=== PATIENT | female | born 1985 | race Caucasian/White ===

== ENCOUNTER 2017-06-09 18:13 | Inpatient (IN) | payer BC ==
[~2017-06-09] VITALS: Ht 185.4 cm; Wt 158.6 kg
[2017-06-09] MEDS ORDERED: DEPO-PROVER150 MG/M1 IM (18:17)
[2017-06-09 19:01] LABS: HEMATOCRIT 38.6 % (37.0-47.0); HEMOGLOBIN 12.7 g/dl (12.5-16.0); MEAN CELL VOLUME 88 fl (80.0-100.0); MEAN CORPUSCULAR HEMOGLOBIN 29 pg (27.0-31.0); MEAN CORPUSCULAR HGB CONC 33 g/dl (33.0-37.0); MEAN PLATELET VOLUME 9.6 fl (7.4-10.4); PLATELET COUNT 268 K/mm3 (130-400); REDCELL DISTRIBUTION WIDTH-CV 13.2 % (11.5-14.5)
[2017-06-09 19:15] LABS: ALBUMIN 4.4 gm/dL (3.5-5.0); BILIRUBIN,TOTAL 0.3 mg/dL (0.0-1.0); C-REACTIVE PROTEIN 1.4 mg/dL (0.0-0.9); CALCIUM 9.2 mg/dL (8.4-10.2); CREATININE, serum 0.61 mg/dL (0.52-1.25); POTASSIUM 3.7 mmol/L (3.4-5.0); TOTAL PROTEIN 7.6 gm/dL (6.4-8.2)
[2017-06-09 19:17] LABS: COLLECTION METHOD CLEAN CATCH
[2017-06-09 19:19] LABS: BAND 2 % (0-10); LYMPHOCYTE 5 % (20.0-51.0); NEUTROPHILS 90 % (42.0-75.2)
[2017-06-09 19:20] LABS: PLATELET ESTIMATE NORMAL (NORMAL)
[2017-06-09 19:29] LABS: INFLUENZA A NEGATIVE; INFLUENZA B NEGATIVE
[2017-06-09 19:33] LABS: AMORPHOUS CRYSTAL Present /uL; MUCOUS Present /lpf; PH 5 (5-8); URINE APPEARANCE Hazy; URINE BACTERIA Rare /hpf; URINE BILIRUBIN Positive (NEGATIVE); URINE BLOOD Negative (NEGATIVE); URINE COLOR Amber; URINE GLUCOSE Negative (NEGATIVE); URINE KETONE Trace (NEGATIVE); URINE LEUKOCYTE ESTERASE Negative (NEGATIVE); URINE NITRATE Negative (NEGATIVE); URINE PROTEIN(semi-quant) 1+ (NEGATIVE)
[2017-06-09 23:23] VITALS: BP 156/72; PULSE 69; TEMP 98.5
[2017-06-10] VITALS (10 sets, daily range): BP systolic 144–170; BP diastolic 65–88; PULSE 58–75; TEMP 97.8–100
[2017-06-11 01:28] VITALS: BP 146/74; PULSE 62; TEMP 98.7
[2017-06-11 06:30] VITALS: BP 136/68; PULSE 56; TEMP 97.2
[2017-06-11 09:24] VITALS: BP 137/71; PULSE 70; TEMP 98.2
[2017-06-11] MEDS ORDERED: NORCO 325 MG-51 TAB PO (09:45)
[2017-06-11] MEDS ORDERED: ZOFRAN ODT4 MG PO (09:50)
[2017-06-11] MEDS ORDERED: COLACE 100100 MG/CAP PO (09:50)
== END 2017-06-11 11:30 | disposition home or self-care (01) | DRG 418 ==
LOC: COL.ER 18:13 → SURG 20:27
PROVIDERS: Family Medicine; Surgery
PROC: 8E0W4CZ Robotic Assisted Procedure of Trunk Region, Percutaneous Endoscopic Approach (ICD-10-PCS; 2017-06-10)
PROC: 0FT44ZZ Resection of Gallbladder, Percutaneous Endoscopic Approach (ICD-10-PCS; principal; 2017-06-10 10:00)
DX: K80.00 Calculus of gallbladder with acute cholecystitis without obstruction (principal); Z68.42 Body mass index [BMI] 45.0-49.9, adult; E66.9 Obesity, unspecified
CPT/HCPCS: A9284; C9113; J0330; J1100; J1170; J1885; J1956; J2175; J2250; J2270; J2405; J2704; J3010; J7030; J7050; J7120; Q9967